=== PATIENT | female | born 1965 | race Caucasian/White ===

== ENCOUNTER → 2017-05-14 | Outpatient (CLI) | payer BC ==
[2015-07-25 16:54] VITALS: BP 132/75
[~2017-05-14] MED LIST: BENICAR40 MG PO
== END ==
LOC: RAD 13:00 → MAMMO 13:03
DX: Z12.31 Encounter for screening mammogram for malignant neoplasm of breast (principal)

== ENCOUNTER → 2017-07-15 | Day surgery (SDC) | payer BC ==
[2015-07-25 16:54] VITALS: BP 132/75
== END ==
LOC: MSO 08:15
DX: Z12.11 Encounter for screening for malignant neoplasm of colon (principal); I10 Essential (primary) hypertension; Z88.3 Allergy status to other anti-infective agents; Z88.0 Allergy status to penicillin
CPT/HCPCS: 00812; J2704; J3010; J7120

== ENCOUNTER 2017-08-05 16:56 | Emergency (ER) | payer BC ==
[~2017-08-05] VITALS: Ht 165.1 cm; Wt 85.5 kg
[2017-08-05 17:56] LABS: EOS # 0.2 (0.04-0.40); HEMATOCRIT 42.6 % (37.0-47.0); HEMOGLOBIN 13.9 g/dL (12.5-16.0); LYMPH# 1.9 (1.50-4.00); MEAN CELL VOLUME 95 fl (78-100); MEAN CORPUSCULAR HEMOGLOBIN 31 pg (27-31); MEAN CORPUSCULAR HGB CONC 33 g/dL (33-37); MEAN PLATELET VOLUME 10.6 fl (7.4-10.4); MONO # 0.6 (0.20-0.80); NEU # 3.4 (1.40-6.50); PLATELET COUNT 273 K/mm3 (130-400); RED BLOOD COUNT 4.48 M/mm3 (4.10-5.30); RED CELL DISTRIBUTION WIDTH 12.1 % (11.5-14.5); WHITE BLOOD COUNT 6.1 K/mm3 (4.8-10.8)
[2017-08-05 18:17] LABS: ALBUMIN 4.3 g/dL (3.5-5.0); BUN/CREATININE RATIO 28.8 (6.0-26.0); CALCIUM 10.1 mg/dL (8.4-10.2); POTASSIUM 3.7 mmol/L (3.6-5.0); TOTAL BILIRUBIN 0.3 mg/dL (0.2-1.3); TOTAL PROTEIN 7.7 g/dL (6.3-8.2)
[2017-08-05 18:35] LABS: URINE APPEARANCE CLEAR; URINE COLOR YELLOW
[2017-08-05 18:36] LABS: URINE BILIRUBIN NEGATIVE (NEGATIVE); URINE BLOOD NEGATIVE (NEGATIVE); URINE GLUCOSE NEGATIVE (NEGATIVE); URINE KETONE NEGATIVE (NEGATIVE); URINE LEUKOCYTE ESTERASE NEGATIVE (NEGATIVE); URINE NITRATE NEGATIVE (NEGATIVE); URINE PROTEIN(semi-quant) NEGATIVE (NEGATIVE); URINE UROBILINOGEN NORMAL (NORMAL); URINE WBC 0-1 /hpf (0-3)
[2017-08-05 18:46] LABS: LIPASE 101 U/L (23-300)
[2017-08-05 19:41] VITALS: BP 134/80
== END 2017-08-05 19:41 | disposition home or self-care (01) ==
LOC: ED 16:56
PROVIDERS: Nurse Practitioner
DX: R10.9 Unspecified abdominal pain (principal); R11.0 Nausea; R29.898 Other symptoms and signs involving the musculoskeletal system; Z88.0 Allergy status to penicillin
CPT/HCPCS: J2405; J3010; J7030

== ENCOUNTER → 2018-03-24 | Outpatient (CLI) | payer BC | LOC: RAD 13:03 | DX: K76.0 Fatty (change of) liver, not elsewhere classified (principal); K63.89 Other specified diseases of intestine; R19.07 Generalized intra-abdominal and pelvic swelling, mass and lump | CPT/HCPCS: Q9967 ==